=== PATIENT | male | born 1990 | race Caucasian/White ===

== ENCOUNTER 2017-04-15 14:50 | Emergency (ER) | payer MEDICAID ==
[2017-04-15 14:58] VITALS: PULSE 70; RESP 16; TEMP 98.2
--- NOTE | 2017-04-15 15:41 | EDPHY ---
H & P Stated Complaint: back pain 1 week Time Seen by Provider: 04/15/17 15:10 HPI/ROS: CHIEF COMPLAINT: Back pain History by patient and his HISTORY OF PRESENT ILLNESS: 26-year-old man presents complaining of bilateral low back pain which has been going on for at least a week. Patient states he woke up 1 morning with it. He describes pain in his bilateral buttocks as well as higher in his low back. It gets intermittently severe with spasm. He feels that radiates down to both of his legs to just above his ankles. There is no associated bowel or bladder incontinence or dysfunction. He has had no fever chills. He denies any urinary symptoms. He has a history of kidney stones but this feels completely different. He has seen his primary care physician for this pain twice in the last week. She prescribed tramadol and Valium. He says the tramadol did not help at all the Valium helped somewhat but it made him dizzy and give him a hangover. He tried taking Percocet his girlfriend had from a tooth extraction and this also helped somewhat. He has been intermittently taking ibuprofen with minimal relief. He also tried a muscle relaxant that starts with the C from a prior episode few years ago but that also did not help. Yesterday his PCP did trigger point injections which he says gave some relief but this morning the pain became severe again. There is no history of associated trauma. He has had multiple similar episodes in the past. 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 REVIEW OF SYSTEMS: As in HPI, and all other systems reviewed and are negative Source: Patient, Family - Personal History Tetanus Vaccine Date: 2010 - Medical/Surgical History Hx Asthma: No Hx Chronic Respiratory Disease: No Hx Diabetes: No Hx Cardiac Disease: No Hx Renal Disease: No Hx Cirrhosis: No Hx Alcoholism: No Hx HIV/AIDS: No Hx Splenectomy or Spleen Trauma: No Other PMH: depression, bronchitis, ureterolithiasis - Family History Significant Family History: No pertinent family hx - Social History Smoking Status: Current every day smoker - Physical Exam Exam: General Appearance: Alert, set uncomfortable appearing. Eyes: Pupils equal and round no pallor or injection. ENT, Mouth: Mucous membranes moist. Gastrointestinal: Abdomen is soft and nontender, no masses, bowel sounds normal. Neurological: Awake, alert and oriented x 3, no pronator drift, normal gait, no pronator drift, DTRs 2+ and equal bilaterally in knees and ankles, sensation intact in feet, left ipsilateral l pain with straight leg raise, no pain with straight leg raise on right Back: No bony tenderness, positive palpable muscle spasm bilateral paraspinous in the lumbar region, no CVA tenderness Skin: Warm and dry, no rashes. Musculoskeletal: Neck is supple nontender. Extremities are symmetrical, full range of motion. DP pulses are 2+ and equal bilaterally Psychiatric: Patient has normal affect, there is no agitation. Constitutional: Initial Vital Signs Temperature (C) 36.8 C 04/15/17 14:54 Heart Rate 70 04/15/17 14:54 Respiratory Rate 16 04/15/17 14:54 Blood Pressure 126/82 H 04/15/17 14:54 O2 Sat (%) 98 04/15/17 14:54 O2 Delivery Mode Room Air Allergies/Adverse Reactions: No Known Allergies Allergy (Verified 04/15/17 14:59) Home Medications: Medication Instructions Recorded Escitalopram Oxalate 02/27/16 Androgel 04/15/17 Meloxicam 7.5 mg PO DAILY #10 tablet 04/15/17 Methocarbamol [Robaxin 750 mg (*)] 1,500 mg PO TID PRN #21 tab 04/15/17 Valium 04/15/17 traMADol 04/15/17 Medical Decision Making ED Course/Re-evaluation: 26-year-old man presents with ongoing low back pain for over a week similar to prior episodes in the past. There is no evidence of significant neurological impairment or red flags. We discussed that there was no need for imaging at this time. He has had no relief from tramadol or Valium. We will give him a trial of meloxicam and Robaxin. We discussed the risks of opiates and benzodiazepines, particularly in combination. I am also recommending massage. I recommend he follow up with his primary care physician if his symptoms persist or worsen. Departure - Departure Disposition: Home, Routine, Self-Care Clinical Impression: Low back pain radiating to both legs Condition: Good Instructions: Acute Low Back Pain (ED) Additional Instructions: You were seen by Dr. Stephanie Velázquez today. Take meloxicam daily for pain and inflammation. Take methocarbamol (Robaxin) as a muscle relaxant when your spasms become severe. Do not drive while taking Robaxin. Follow up with your primary care physician if symptoms persist. Return for any worsening or new concerns. Referrals: Jewel Borja DO [Primary Care Provider] - As per Instructions Prescriptions: Meloxicam 7.5 mg PO DAILY #10 tablet Methocarbamol [Robaxin 750 mg (*)] 1,500 mg PO TID PRN #21 tab PRN Reason: back pain and spasm
[2017-04-15 15:59] VITALS: BP 123/72; O2SAT 97
== END 2017-04-15 15:50 | disposition home or self-care (01) ==
LOC: CED 14:50
DX: M54.5 Low back pain (principal); F17.200 Nicotine dependence, unspecified, uncomplicated

== ENCOUNTER → 2017-04-18 | Outpatient (CLI) | payer MEDICAID | LOC: CIMAGING 12:11 | PROVIDERS: ATTEND Family Medicine | DX: M41.86 Other forms of scoliosis, lumbar region (principal) | CPT/HCPCS: 72100-PO ==

== ENCOUNTER 2017-06-24 17:46 | Emergency (ER) | payer MEDICAID ==
[2017-06-24 17:56] VITALS: TEMP 98.2
[2017-06-24] MEDS ORDERED: NS 1,000 ML IV ONE ×2 (18:20→18:27)
--- NOTE | 2017-06-24 18:31 | EDPHY ---
H & P Stated Complaint: n/d, lightheaded, dizzy, tunnel vision in spells x 3-4 days, worsening Time Seen by Provider: 06/24/17 18:15 HPI/ROS: CHIEF COMPLAINT: Lightheaded, tunnel vision HISTORY OF PRESENT ILLNESS: The patient is a 26-year-old man with a history of depression and low testosterone who comes to the emergency department complaining of lightheadedness, feeling foggy and occasional tunnel vision over the last 2 days. He denies any trauma. He denies fever. He denies headache. Denies chest pain. He denies shortness of breath. He denies GI symptoms. He has been eating normally. Normal bowel movements and urination. REVIEW OF SYSTEMS: Constitutional: denies: chills, fever, recent illness, recent injury EENTM: See HPI Respiratory: denies: cough, shortness of breath Cardiac: denies: chest pain, irregular heart rate, lightheadedness, palpitations Gastrointestinal/Abdominal: denies: abdominal pain, diarrhea, nausea, vomiting, blood streaked stools Genitourinary: denies: dysuria, frequency, hematuria, pain Musculoskeletal: denies: joint pain, muscle pain Skin: denies: lesions, rash, jaundice, bruising Neurological: See HPI denies: headache, numbness, paresthesia, tingling, Hematologic/Lymphatic: denies: blood clots, easy bleeding, easy bruising Immunologic/allergic: denies: HIV/AIDS, transplant EXAM: GENERAL: Slightly overweight and in no acute distress. HEAD: Atraumatic, normocephalic. EYES: Normal retina exam, Pupils equal round and reactive to light, extraocular movements intact, sclera anicteric, conjunctiva are normal. ENT: Poor dentition, TMs normal, nares patent, oropharynx clear without exudates. Moist mucous membranes. NECK: Normal range of motion, supple without lymphadenopathy or JVD. LUNGS: Breath sounds clear to auscultation bilaterally and equal. No wheezes rales or rhonchi. HEART: Regular rate and rhythm without murmurs, rubs or gallops. ABDOMEN: Soft, nontender, normoactive bowel sounds. No guarding, no rebound. No masses appreciated. BACK: No CVA tenderness, no spinal tenderness, step-offs or deformities EXTREMITIES: Normal range of motion, no pitting or edema. No clubbing or cyanosis. NEUROLOGICAL: Cranial nerves II through XII grossly intact. Normal speech, normal gait. 5/5 strength, normal movement in all extremities, normal sensation PSYCH: Normal mood, normal affect. SKIN: Warm, dry, normal turgor, no visible rashes or lesions. Source: Patient Exam Limitations: No limitations - Personal History Current Tetanus/Diphtheria Vaccine: Yes Current Tetanus Diphtheria and Acellular Pertussis (TDAP): Yes Tetanus Vaccine Date: 2016 - Medical/Surgical History Hx Asthma: No Hx Chronic Respiratory Disease: No Hx Diabetes: No Hx Cardiac Disease: No Hx Renal Disease: No Hx Cirrhosis: No Hx Alcoholism: No Hx HIV/AIDS: No Hx Splenectomy or Spleen Trauma: No Other PMH: depression, bronchitis, ureterolithiasis, anxiety, PTSD - Social History Smoking Status: Current every day smoker Alcohol Use: None Drug Use: None Constitutional: Initial Vital Signs Temperature (C) 36.8 C 06/24/17 17:50 Heart Rate 77 06/24/17 17:50 Respiratory Rate 18 06/24/17 17:50 Blood Pressure 133/65 H 06/24/17 17:50 O2 Sat (%) 96 06/24/17 17:50 O2 Delivery Mode Room Air Allergies/Adverse Reactions: No Known Allergies Allergy (Verified 06/24/17 17:49) Home Medications: Medication Instructions Recorded Escitalopram Oxalate 02/27/16 Androgel 04/15/17 Lomotil Tab (*) 06/24/17 Zofran 06/24/17 Medical Decision Making - Diagnostics EKG Interpretation: An EKG obtained and was read and documented in trace view. Please see trace view for full reading and report. Sinus rhythm, nonspecific interventricular conduction delay A repeat EKG obtained and was read and documented in trace view. Please see trace view for full reading and report. Unchanged from previous Imaging Results: Imaging Impressions Head CT 06/24/17 19:45 Impression: Normal brain. No intracranial hemorrhage or evidence of ischemia. Findings discussed with Emergency Department physician, KERON TODD at 20:37. ED Course/Re-evaluation: 7:45 p.m. the patient states that he feels persistently foggy and occasionally has tunnel vision. It does not vary with body positioning. I will order the CT scan of his head for further evaluation and repeat an EKG. Otherwise his test thus far are very reassuring. He denies chest pain or shortness of breath. He denies headache. Denies focal weakness or deficits. She denies GI symptoms. 8:33 p.m. the patient is feeling slightly better. We discussed his negative CT scan. The patient declines further testing or observation and wishes to go home. He will follow up with his doctor on Monday. We discussed indications for returning. Differential Diagnosis: Partial list of the Differential diagnosis considered include but were not limited to; migraine, electrolyte abnormality, dehydration and although unlikely based on the history and physical exam, I also considered seizure, infection, retinal detachment, glaucoma, diabetes. I discussed these differential diagnoses and the plan with the patient as well as the usual and expected course. The patient understands that the diagnosis is provisional and that in medicine we are not always correct and that further workup is often warranted. Usual and customary warnings were given. All of the patient's questions were answered. The patient was instructed to return to the emergency department should the symptoms at all worsen or return, otherwise to followup with the physician as we discussed. - Data Points Laboratory Results: Laboratory Results 06/24/17 18:14 06/24/17 18:14 06/24/17 06/24/17 18:14 18:14 WBC 7.59 10^3/uL 10^3/uL (3.80-9.50) RBC 5.51 10^6/uL 10^6/uL (4.40-6.38) Hgb 15.9 g/dL g/dL (13.7-17.5) Hct 46.7 % % (40.0-51.0) MCV 84.8 fL fL (81.5-99.8) MCH 28.9 pg pg (27.9-34.1) MCHC 34.0 g/dL g/dL (32.4-36.7) RDW 12.6 % % (11.5-15.2) Plt Count 238 10^3/uL 10^3/uL (150-400) MPV 10.6 fL fL (8.7-11.7) Neut % (Auto) 66.3 % % (39.3-74.2) Lymph % (Auto) 23.3 % % (15.0-45.0) [place] % (Auto) 7.6 % % (4.5-13.0) Eos % (Auto) 1.7 % % (0.6-7.6) Baso % (Auto) 0.8 % % (0.3-1.7) Nucleat RBC Rel Count 0.0 % % (0.0-0.2) Absolute Neuts (auto) 5.03 10^3/uL 10^3/uL (1.70-6.50) Absolute Lymphs (auto) 1.77 10^3/uL 10^3/uL (1.00-3.00) Absolute Monos (auto) 0.58 10^3/uL 10^3/uL (0.30-0.80) Absolute Eos (auto) 0.13 10^3/uL 10^3/uL (0.03-0.40) Absolute Basos (auto) 0.06 10^3/uL 10^3/uL (0.02-0.10) Absolute Nucleated RBC 0.00 10^3/uL 10^3/uL (0-0.01) Immature Gran % 0.3 % % (0.0-1.1) Immature Gran # 0.02 10^3/uL 10^3/uL (0.00-0.10) Sodium 140 mEq/L mEq/L (134-144) Potassium 3.9 mEq/L mEq/L (3.5-5.2) Chloride 105 mEq/L mEq/L (97-110) Carbon Dioxide 22 mEq/l mEq/l (22-31) Anion Gap 13 mEq/L mEq/L (8-16) BUN 19 mg/dL mg/dL (7-23) Creatinine 0.9 mg/dL mg/dL (0.7-1.3) Estimated GFR > 60 Glucose 93 mg/dL mg/dL (70-100) Calcium 9.5 mg/dL mg/dL (8.5-10.4) Troponin I < 0.012 ng/mL ng/mL (0.000-0.034) Medications Given: Discontinued Medications Sodium Chloride (Ns) 1,000 mls @ 0 mls/hr IV ONCE ONE PRN Reason: Wide Open Stop: 06/24/17 18:21 Last Admin: 06/24/17 18:00 Dose: 1,000 mls Sodium Chloride (Ns) 1,000 mls @ 0 mls/hr IV EDNOW ONE; Wide Open PRN Reason: Protocol Stop: 06/24/17 18:28 Last Admin: 06/24/17 18:52 Dose: 1,000 mls Departure - Departure Disposition: Home, Routine, Self-Care Clinical Impression: Fatigue Qualifiers: Fatigue type: unspecified Qualified Code(s): R53.83 - Other fatigue Condition: Fair Instructions: Fatigue (ED) Referrals: Jewel Borja DO [Primary Care Provider] - As per Instructions
[2017-06-24 18:33] LABS: % IMMATURE GRANULYOCYTES 0.3 % (0.0-1.1); ABSOLUTE IMMATURE GRANULOCYTES 0.02 10^3/uL (0.00-0.10); ADD DIFF? NO; ADD MORPH? NO; ADD SCAN? NO; ATYPICAL LYMPHOCYTE FLAG 0 (0-99); FRAGMENT RBC FLAG 0 (0-99); HEMATOCRIT 46.7 % (40.0-51.0); HEMOGLOBIN 15.9 g/dL (13.7-17.5); LEFT SHIFT FLG 0 (0-99); LIPEMIA HEMOLYSIS FLAG 90 (0-99); MEAN CELL HEMOGLOBIN 28.9 pg (27.9-34.1); MEAN CELL VOLUME 84.8 fL (81.5-99.8); MEAN PLATELET VOLUME 10.6 fL (8.7-11.7); PLATELET CLUMPS FLAG 0 (0-99); PLATELET COUNT 238 10^3/uL (150-400); RED BLOOD CELL COUNT 5.51 10^6/uL (4.40-6.38); RED CELL DISTRIBUTION WIDTH 12.6 % (11.5-15.2)
[2017-06-24 18:40] LABS: ANION GAP 13 mEq/L (8-16); CALCIUM 9.5 mg/dL (8.5-10.4); CARBON DIOXIDE 22 mEq/l (22-31); CHLORIDE 105 mEq/L (97-110); CREATININE 0.9 mg/dL (0.7-1.3); GLOMERULAR FILTRATION RATE > 60; GLUCOSE 93 mg/dL (70-100); POTASSIUM 3.9 mEq/L (3.5-5.2); SODIUM 140 mEq/L (134-144)
--- NOTE | 2017-06-24 18:48 | CPEKG ---
Heart Rate: 64 RR Interval: 938 P-R Interval: 164 QRSD Interval: 120 QT Interval: 416 QTC Interval: 430 P [place]: 50 QRS [place]: 78 T Wave [place]: 59 EKG Severity - ABNORMAL ECG - EKG Impression: SINUS RHYTHM EKG Impression: IVCD, CONSIDER ATYPICAL RBBB EKG Impression: INFERIOR Q WAVES, PROBABLY NORMAL VARIATION Electronically Signed By: Jose Alberto Claire 24-Jun-2017 19:07:35
[2017-06-24 18:51] LABS: TROPONIN I < 0.012 ng/mL (0.000-0.034)
--- NOTE | 2017-06-24 19:58 | CPEKG ---
Heart Rate: 63 RR Interval: 952 P-R Interval: 160 QRSD Interval: 118 QT Interval: 416 QTC Interval: 426 P [place]: 43 QRS [place]: 77 T Wave [place]: 57 EKG Severity - ABNORMAL ECG - EKG Impression: SINUS RHYTHM EKG Impression: INCOMPLETE RIGHT BUNDLE BRANCH BLOCK EKG Impression: INFERIOR Q WAVES, PROBABLY NORMAL VARIATION EKG Impression: Unchanged from previous Electronically Signed By: Jose Alberto Claire 24-Jun-2017 20:06:50
[2017-06-24 20:41] VITALS: BP 132/61; PULSE 64; RESP 16; O2SAT 92
== END 2017-06-24 20:45 | disposition home or self-care (01) ==
DX: R53.83 Other fatigue (principal); F17.200 Nicotine dependence, unspecified, uncomplicated; E86.9 Volume depletion, unspecified

== ENCOUNTER 2018-01-27 19:14 | Emergency (ER) | payer MEDICAID ==
[2018-01-27 19:32] VITALS: BP 121/68; PULSE 69; RESP 18; TEMP 98.8; O2SAT 96
--- NOTE | 2018-01-27 20:04 | EDPHY ---
H & P Time Seen by Provider: 01/27/18 19:50 HPI/ROS: Chief complaint. Hand injury HPI. Patient 27-year-old male presents emergency department with injury to his right hand. Last night in anger and anxiety punched a metal door. Has pain at the base of his 3rd digit. He is right handed. Some bruising and swelling. No previous known fracture. Denies any other injuries. Patient tells me he did not strike another individual in the mouth or sustained abrasion on teeth. ROS Constitutional. no fever/chills, no weakness Eyes. no problems with vision ENT. no sore throat, no nasal drainage Cardiovascular. no chest pain Respiratory. no shortness of breath, no cough Abdominal. no abdominal pain, no nausea/vomiting, no diarrhea . no problems urinating MS. Right hand pain Skin. no rash Lymph. no swollen glands Neuro. no headache, no dizziness, no difficulty walking or with speech Past Medical/Surgical History: Depression, kidney stones, anxiety, PTSD Social History: Single, daily smoker, no alcohol Smoking Status: Current every day smoker Physical Exam: General Appearance: Alert well-developed male mild distress vital signs are stable Eyes: Pupils equal and round no pallor or injection. ENT, Mouth: Mucous membranes are moist. Respiratory: There are no retractions, lungs are clear to auscultation. Cardiovascular: Regular rate and rhythm. Gastrointestinal: Abdomen is soft and nontender, no masses, bowel sounds normal. Neurological: Awake and alert, sensory and motor exams grossly normal. Skin: Warm and dry, no rashes. Musculoskeletal: Neck is supple nontender. Extremities some mild swelling and superficial abrasion over the 3rd MCP joint. No obvious deformity. Fingers are normal. Distal motor vascular sensitivity is intact. Wrist without tenderness Psychiatric: Patient is oriented X 3, there is no agitation. Constitutional: Initial Vital Signs Temperature (C) 37.1 C 01/27/18 19:26 Heart Rate 69 01/27/18 19:26 Respiratory Rate 18 01/27/18 19:26 Blood Pressure 121/68 H 01/27/18 19:26 O2 Sat (%) 96 01/27/18 19:26 O2 Delivery Mode Room Air Allergies/Adverse Reactions: No Known Allergies Allergy (Verified 01/27/18 19:24) Home Medications: Medication Instructions Recorded Escitalopram Oxalate 02/27/16 Gabapentin 01/27/18 OXcarbazepine [Trileptal 300mg (*)] 01/27/18 Testosterone 01/27/18 morphINE [morphINE 10 mg/ml Inj 01/27/18 (*)] Medical Decision Making - Diagnostics Imaging Results: X-ray right hand interpreted by me shows no fracture dislocation ED Course/Re-evaluation: Re-evaluation patient is stable. He and I discussed imaging study results, treatment plan including criteria for return importance of follow-up and further evaluation. He expresses understanding and agreement Differential Diagnosis: I considered contusion, fracture, dislocation Departure - Departure Disposition: Home, Routine, Self-Care Clinical Impression: Contusion of hand, right Qualifiers: Encounter type: initial encounter Qualified Code(s): S60.221A - Contusion of right hand, initial encounter Condition: Good Instructions: Contusion in Adults (ED) Additional Instructions: Ice to sore area of hand next 24 hr. Ibuprofen 600 mg every 6 hr for discomfort. Activity as tolerated. Return for worsening symptoms. Recheck in 3-4 days if not improving Referrals: Jewel Borja, [Primary Care Provider] - 3-4 days, if not improved
== END 2018-01-27 20:24 | disposition home or self-care (01) ==
LOC: CED 19:14
DX: S60.221A Contusion of right hand, initial encounter (principal); F17.200 Nicotine dependence, unspecified, uncomplicated; W22.8XXA Striking against or struck by other objects, initial encounter
CPT/HCPCS: 73130-PO

== ENCOUNTER 2018-03-21 16:08 | Emergency (ER) | payer MEDICAID ==
[2018-03-21] MEDS ORDERED: DIAZEPAM 5 MG TAB PO ONE (16:35)
[2018-03-21] MEDS ORDERED: LIDOCAINE 4%/MENTHOL 1% PATCH TD ONE (16:36)
[2018-03-21] MEDS ORDERED: ACETAMINOPHEN 500 MG TAB PO ONE (16:48)
--- NOTE | 2018-03-21 17:00 | EDPHY ---
H & P Time Seen by Provider: 03/21/18 16:22 HPI/ROS: This patient describes abrupt onset of back pain lumbar to mid back left more than right at 12:30 p.m. Today when he was caring ina tolentino and walking. Because of the abruptness of the onset of pain he is concerned about potential kidney stone. He describes feeling mild dizziness and lightheadedness initially the since improved. He has mild nausea in addition. He reports the intensity the pain as moderate at baseline with waves of severe pain intermittently. He is accompanied by his girlfriend who drove here by private vehicle for further evaluation. The patient took ibuprofen prior to arrival with minimal improvement. He takes morphine for hip dysplasia pain but has not had any yet today. ROS: Constitutional: No fevers chills or fatigue. HEENT: No complaints line pulmonary: No complaints. No pleuritic pain or shortness of breath Cardiovascular: Currently no chest pain or lightheadedness. GI: No abdominal pain associated with this. : No testicular pain or swelling. No hematuria. No urethral discharge. Integumentary: No diaphoresis. No skin rash. Neuro: No complaints endocrine: No complaints 10 point ROS is otherwise negative. Smoking Status: Heavy smoker Physical Exam: General Appearance: Alert, no distress. Eyes: Pupils equal and round no pallor or injection. ENT, Mouth: Mucous membranes moist. Respiratory: There are no retractions, lungs are clear to auscultation. Cardiovascular: Regular rate and rhythm. Gastrointestinal: Abdomen is soft and nontender, no masses, bowel sounds normal. Back: No midline tenderness. Patient has paraspinous muscular tenderness and spasm in left lumbar region extends to the mid back. Straight leg raise is negative bilaterally. : No testicular tenderness. Neurological: GCS 15. He maintains normal light touch sensory exam is saddle region in bilateral lower extremities. He maintains 5/5 strength in great toe dorsiflexion plantar flexion bilaterally. He maintains 2+ symmetric patellar and Achilles DTRs bilaterally. Skin: Warm and dry, no rashes. Musculoskeletal: Neck is supple nontender. Extremities are symmetrical, full range of motion. Psychiatric: Mood and affect are normal DIFFERENTIAL DIAGNOSIS: After history and physical exam differential diagnosis was considered for low back strain, kidney stone, disc herniation without radiculopathy Constitutional: Initial Vital Signs Temperature (C) 36.9 C 03/21/18 16:12 Heart Rate 70 03/21/18 16:12 Respiratory Rate 16 03/21/18 16:12 Blood Pressure 152/88 H 03/21/18 16:12 O2 Sat (%) 99 03/21/18 16:12 O2 Delivery Mode Room Air Allergies/Adverse Reactions: No Known Allergies Allergy (Verified 03/21/18 16:18) Home Medications: Medication Instructions Recorded Escitalopram Oxalate 02/27/16 Gabapentin 01/27/18 OXcarbazepine [Trileptal 300mg (*)] 01/27/18 Testosterone 01/27/18 morphINE [morphINE 10 mg/ml Inj 01/27/18 (*)] Imipramine HCl 03/21/18 Lidocaine [Lidoderm] 1 each TP DAILY #15 adh..patch 03/21/18 Methocarbamol [Robaxin 750 mg (*)] 750 - 1,500 mg PO QID PRN #30 tab 03/21/18 MDM/Departure - MDM Diagnostics: Urinalysis: Minimal ketones. Otherwise normal Medications Given: Discontinued Medications Acetaminophen (Tylenol) 1,000 mg PO EDNOW ONE Stop: 03/21/18 16:49 Last Admin: 03/21/18 17:33 Dose: 1,000 mg Diazepam (Valium) 10 mg PO EDNOW ONE Stop: 03/21/18 16:36 Last Admin: 03/21/18 16:42 Dose: 10 mg Miscellaneous Medication (Icy Hot Lidocaine/Menthol 4%/1% Patch) 1 patch TD EDNOW ONE Stop: 03/21/18 16:37 Last Admin: 03/21/18 16:44 Dose: 1 patch ED Course/Re-evaluation: Lidoderm patch, Valium p.o. And Tylenol with improvement I counseled patient regarding low back strain. Demonstrated some stretches that may assist in his healing. I doubt ureteral stone given no hematuria and findings character scab muscle strain on exam. Will prescribe methocarbamol in addition to Lidoderm patches, Tylenol and ibuprofen for home treatment plan. No evidence of cauda equina or other red flag findings. He will follow up with primary care physician understands need to return emergency department should he develop any significant worsening despite treatment plan. - Depart Disposition: Home, Routine, Self-Care Clinical Impression: Low back strain Qualifiers: Encounter type: initial encounter Qualified Code(s): S39.012A - Strain of muscle, fascia and tendon of lower back, initial encounter Condition: Good Instructions: Low Back Strain (ED) Additional Instructions: DX: Low back strain Plan: Ibuprofen 400-600 mg per 6 hours regularly for the next week then as needed. Methocarbamol muscle relaxants as needed. Lidoderm patches in addition. Tylenol as needed for pain. Starts daily stretches prior to taking muscle relaxants and Vicodin in the morning. 3-5 minutes each of: "Butterfly stretch," "Sphinx stretch", "pigeon stretch", and hamstring stretch. Avoid lifting more than 5-10 pounds until symptoms improve. Call your primary care physician for a followup appointment in 3-7 days. Go to the emergency department for worsening of your symptoms despite the treatment plan. Prescriptions: Lidocaine [Lidoderm] 1 each TP DAILY #15 adh..patch Methocarbamol [Robaxin 750 mg (*)] 750 - 1,500 mg PO QID PRN #30 tab PRN Reason: Muscle Spasms Referrals: Jewel Borja DO [Primary Care Provider] - As per Instructions
[2018-03-21 17:36] VITALS: BP 131/73
== END 2018-03-21 17:37 | disposition home or self-care (01) ==
LOC: CED 16:08
DX: S39.012A Strain of muscle, fascia and tendon of lower back, initial encounter (principal); F17.200 Nicotine dependence, unspecified, uncomplicated; X58.XXXA Exposure to other specified factors, initial encounter
CPT/HCPCS: 81003-PO

== ENCOUNTER 2018-07-18 15:29 | Emergency (ER) | payer MEDICAID ==
[2018-07-18 15:38] VITALS: BP 132/76
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
== END 2018-07-18 16:15 | disposition home or self-care (01) ==
LOC: CED 15:29
DX: S50.11XA Contusion of right forearm, initial encounter (principal); W22.8XXA Striking against or struck by other objects, initial encounter
CPT/HCPCS: 73090-PO

== ENCOUNTER 2019-04-26 13:12 | Emergency (ER) | payer OTHER, MEDICAID | END 2019-04-26 14:11 | disposition home or self-care (01) | LOC: CED 13:12 ==